=== PATIENT | male | born 1945 | race Caucasian/White ===

== ENCOUNTER → 2025-09-17 | Outpatient (CLI) | payer MEDICARE, OTHER | END | disposition home or self-care (01) | LOC: US 09-15 13:30 → LAB 07:43 → US 08:00 | PROVIDERS: ATTEND Internal Medicine | DX: N28.1 Cyst of kidney, acquired (principal); K80.20 Calculus of gallbladder without cholecystitis without obstruction; K76.0 Fatty (change of) liver, not elsewhere classified; R74.8 Abnormal levels of other serum enzymes; R73.9 Hyperglycemia, unspecified; R74.9 Abnormal serum enzyme level, unspecified; R10.9 Unspecified abdominal pain ==